=== PATIENT | female | born 1980 | race Hispanic/Latino ===

== ENCOUNTER 2020-02-20 14:11 | Inpatient (IN) | payer OTHER, SELFPAY ==
[~2020-02-20 14:11] MED LIST: CIPR-245 PO; METR500T PO
[2020-02-20] MEDS ORDERED: ONDANSETRON HCL 4 MG/2 ML VIAL ONE ×2 (14:25→19:51)
[2020-02-20 15:02] LABS: BASOPHILS % (AUTO) 0.3 % (0.0-5.0); HEMATOCRIT 41.7 % (36-48); LYMPHOCYTES % (AUTO) 10.1 % (21.0-51.0); MEAN CORPUSCULAR HEMOGLOBIN 30.9 pg (27.0-33.0); MEAN CORPUSCULAR HGB CONC 34.5 g/dL (32.0-36.0); MEAN CORPUSCULAR VOLUME 89.5 fL (79-99); MONOCYTES % (AUTO) 3.6 % (3.0-13.0); NEUTROPHILS % (AUTO) 85.3 % (40.0-77.0); PLATELET COUNT (AUTO) 301 K/uL (130-400); RED BLOOD CELL COUNT(AUTO) 4.66 MIL/uL (4.00-5.50); WHITE BLOOD COUNT (AUTO) 18.9 K/uL (4.8-10.8)
[2020-02-20 15:18] LABS: INR 0.97 (0.85-1.15); PARTIAL THROMBOPLASTIN TIME 24.2 SEC (26.3-35.5); PROTHROMBIN TIME 10.5 SEC (9.6-11.6)
[2020-02-20 15:46] LABS: CREATININE 0.9 mg/dL (0.5-1.5); POTASSIUM 3.3 mmol/L (3.5-5.1)
[2020-02-20 15:50] LABS: ALBUMIN 4.2 g/dL (3.5-5.0); BILIRUBIN,TOTAL 0.4 mg/dL (0.2-1.0); TOTAL PROTEIN, SERUM 7.6 g/dL (6.0-8.3)
[2020-02-20] MEDS ORDERED: FAMOTIDINE/PF 20 MG/2 ML VIAL IV ONE (16:03)
[2020-02-20 16:27] LABS: APPEARANCE,URINE Cloudy (CLEAR); BILIRUBIN,URINE Negative (NEGATIVE); COLOR,URINE Yellow (YELLOW); GLUCOSE, URINE (UA) Negative (NEGATIVE); KETONES,URINE >=160 mg/dL (NEGATIVE); LEUKOCYTE ESTERASE ,URINE Negative (NEGATIVE); NITRATE,URINE Negative (NEGATIVE); OCCULT BLOOD,URINE Nonhemolyzed Trace (NEGATIVE); PH,URINE 6.5 (5.0-8.0); PROTEIN,URINE Trace mg/dL (NEGATIVE)
[2020-02-20 16:30] LABS: HCG,QUAL RESULT NEGATIVE (NEGATIVE)
[2020-02-20 16:37] LABS: BACTERIA,URINE Rare /HPF (None Seen); WBC,URINE 0-1 /HPF (0-1)
[2020-02-20 16:38] LABS: MUCUS,URINE Moderate LPF (None Seen); SQUAMOUS EPITHELIAL CELL,UR Rare /HPF (0-2)
[2020-02-20] MEDS ORDERED: CEFTRIAXONE SODIUM 2 GM VIAL ONE (17:03)
[2020-02-20] MEDS ORDERED: SODIUM CHLORIDE 0.9% 100 ML IV ONE (17:03)
[2020-02-20] MEDS ORDERED: SODIUM CHLORIDE 0.9% 1000ML 1,000 ML IV ONE (17:03)
[2020-02-20 18:06] LABS: CRP QUANTITATIVE 3.4 mg/L (0.00-9.0)
[2020-02-20] MEDS ORDERED: SODIUM CHLORIDE 0.9% 500ML 500 ML IV ONE (19:30)
[2020-02-20] MEDS ORDERED: TRAMADOL HCL 50 MG TABLET ONE (19:52)
[2020-02-20] MEDS ORDERED: ERGOCALCIFEROL (VITAMIN D2) 50,000 UNIT CAPSULE PO ONE (22:00)
[2020-02-20] MEDS ORDERED: ACETAMINOPHEN 325 MG TAB PO PRN ×2 (22:00)
[2020-02-20] MEDS ORDERED: ONDANSETRON HCL 4 MG/2 ML VIAL IV PRN (22:00)
[2020-02-20] MEDS ORDERED: MORPHINE SULFATE 2 MG/ML 1ML SYG IVP PRN (22:00)
[2020-02-20] MEDS ORDERED: GUAIFENESIN-DM 200/20 MG 10 ML PO PRN (22:00)
[2020-02-20] MEDS ORDERED: DOXYCYCLINE 100MG+NS 250ML IV SCH (22:00)
[2020-02-20] MEDS ORDERED: CEFTRIAXONE SODIUM 1 GM IVP SCH (22:00)
[2020-02-20] MEDS ORDERED: POTASSIUM CHLORIDE 20MEQ/100ML 100 ML IV PRN (22:15)
[2020-02-20] MEDS ORDERED: MAGNESIUM 2GM PREMIX 50ML 50 ML IV PRN (22:15)
[2020-02-20] MEDS ORDERED: SODIUM CHLORIDE 0.9% 1000ML 1,000 ML IV SCH (22:15)
[2020-02-20] MEDS ORDERED: SODIUM CHLORIDE 0.9% 1000ML 500 ML IV SCH (22:15)
[2020-02-20] MEDS ORDERED: LIDOCAINE HCL-MPF 1% 2ML VIAL IV PRN (22:15)
[2020-02-20] MEDS ORDERED: NITROGLYCERIN 0.4 MG SL TAB SL PRN (22:45)
[2020-02-20] MEDS ORDERED: DOXYCYCLINE 100MG+NS 250ML 250 ML IV SCH (23:00)
[2020-02-21] MEDS ORDERED: ERGOCALCIFEROL (VITAMIN D2) 50,000 UNIT CAPSULE ONE (00:12)
[2020-02-21 01:15] LABS: CREATINE KINASE, TOTAL 108 U/L (21-232); MYOGLOBIN 82 ng/mL (10-92); TROPONIN I < 0.04 ng/mL (0.00-0.06)
[2020-02-21] MEDS ORDERED: ONDANSETRON HCL 4 MG/2 ML VIAL ONE ×2 (03:20→10:55)
[2020-02-21] MEDS ORDERED: POTASSIUM CHLORIDE 20MEQ/100ML 100 ML IV ONE (03:40)
[2020-02-21] MEDS ORDERED: LIDOCAINE HCL-MPF 1% 2ML VIAL ONE (03:40)
[2020-02-21] MEDS ORDERED: MORPHINE SULFATE 2 MG/ML 1ML SYG ONE ×2 (03:59→10:54)
[2020-02-21] MEDS ORDERED: METHYLPREDNISOLONE SOD SUCC 125MG/2ML VIAL ONE (04:00)
[2020-02-21 07:23] LABS: BASOPHILS % (AUTO) 0.1 % (0.0-5.0); MEAN CORPUSCULAR HEMOGLOBIN 30.9 pg (27.0-33.0); MEAN CORPUSCULAR HGB CONC 34.4 g/dL (32.0-36.0); MEAN CORPUSCULAR VOLUME 89.7 fL (79-99); MONOCYTES % (AUTO) 4.3 % (3.0-13.0); NEUTROPHILS % (AUTO) 88.1 % (40.0-77.0); PLATELET COUNT (AUTO) 204 K/uL (130-400); RED BLOOD CELL COUNT(AUTO) 3.79 MIL/uL (4.00-5.50); RED CELL DISTRIBUTION WIDTH 13.3 % (11.0-15.5); WHITE BLOOD COUNT (AUTO) 15.7 K/uL (4.8-10.8)
[2020-02-21 07:46] LABS: HEMOGLOBIN A1C 5.4 % (4.0-6.0)
[2020-02-21 08:12] LABS: ALANINE AMINOTRANSFERASE 23 U/L (12-78); ALBUMIN 3.4 g/dL (3.5-5.0); ASPARTATE AMINOTRANSFERASE 12 U/L (10-37); BILIRUBIN,TOTAL 0.3 mg/dL (0.2-1.0); CARBON DIOXIDE 20 mmol/L (21-32); CHLORIDE 113 mmol/L (101-111); CHOLESTEROL 147 mg/dL (<200); CREATINE KINASE, TOTAL 158 U/L (21-232); CREATININE 0.6 mg/dL (0.5-1.5); GLOMERULAR FILTR. RATE CALC 118 mL/min (>60); GLUCOSE,RANDOM 128 mg/dL (70-105); HDL CHOLESTEROL 50 mg/dL (35-85); LACTATE DEHYDROGENASE 149 U/L (81-234); LDL DIRECT 78 mg/dL (0-99); MYOGLOBIN 89 ng/mL (10-92); POTASSIUM 3.8 mmol/L (3.5-5.1); SODIUM SERUM 143 mmol/L (136-145); THYROID STIMULATING HORMONE 0.35 uIU/mL (0.36-3.74); TOTAL PROTEIN, SERUM 6.1 g/dL (6.0-8.3); TRIGLYCERIDES 115 mg/dL (30-200); TROPONIN I < 0.04 ng/mL (0.00-0.06); UREA NITROGEN, BLOOD 9 mg/dL (7-18)
[2020-02-21] MEDS ORDERED: ASCORBIC ACID 500 MG TAB ONE (08:23)
[2020-02-21] MEDS ORDERED: ASPIRIN 81MG TAB.CHEW ONE (08:23)
[2020-02-21] MEDS ORDERED: CEFTRIAXONE SODIUM 1 GM ONE (08:24)
[2020-02-21] MEDS ORDERED: ZINC SULFATE 220 CAPSULE ONE (08:24)
[2020-02-21] MEDS ORDERED: SODIUM CHLORIDE 0.9% 100 ML IV ONE (08:25)
[2020-02-21] MEDS ORDERED: ZINC SULFATE 220 CAPSULE PO SCH (09:00)
[2020-02-21] MEDS ORDERED: ASPIRIN 81MG TAB.CHEW PO SCH (09:00)
[2020-02-21] MEDS ORDERED: ASCORBIC ACID 500 MG TAB PO SCH (09:00)
--- NOTE | 2020-02-21 16:00 | NUR ---
SPOKE TO PATIENT VIA PHONE FOR [place] LIVES W MINOR DAUGHTER, WORKS, IS ACTIVE, INDEPENDENT, NO DME,& DCP IS HOME, FATHER TO [employer] TO DRIVE HOME. STATES FEELING BETTER, ANXIOUS TO LEAVE Addendum: 02/22/20 at 1148 by ALTA CARRION RN Amended: Links added.
[2020-02-21] MEDS ORDERED: CEFD300C3 PO (16:06)
[2020-02-21] MEDS ORDERED: TRAM50TA4 PO (16:06)
== END 2020-02-21 16:55 | disposition home or self-care (01) | DRG 195 ==
LOC: EDH 14:11 → EDHIP 14:12
PROVIDERS: ADMIT Internal Medicine; ATTEND Internal Medicine
DX: J18.9 Pneumonia, unspecified organism (principal); F17.210 Nicotine dependence, cigarettes, uncomplicated; Z20.828 Contact with and (suspected) exposure to other viral communicable diseases; Z83.3 Family history of diabetes mellitus
CPT/HCPCS: 36415; 71045; 74176; 80053; 80061; 81001; 81025; 82550; 82728; 83036; 83605; 83615; 83690; 83874; 84145; 84443; 84484; 85025; 85378; 85610; 85730; 86140; 93005; G0378; J0696; J2405; J2930; J3480; J3490; J7030; J7040; U0003

== ENCOUNTER 2020-06-26 03:47 | Emergency (ER) | payer OTHER, SELFPAY ==
[~2020-06-26 03:47] MED LIST changes: +CEFD300C3 PO; -CIPR-245 PO; -METR500T PO; +TRAM50TA4 PO
[2020-06-26] MEDS ORDERED: PROMETHAZINE HCL 25 MG/ML 1ML AMPULE IM ONE (03:48)
[2020-06-26 04:13] LABS: APPEARANCE,URINE Cloudy (CLEAR); BILIRUBIN,URINE Negative (NEGATIVE); COLOR,URINE Dark Yellow (YELLOW); GLUCOSE, URINE (UA) Negative (NEGATIVE); KETONES,URINE 40 mg/dL (NEGATIVE); LEUKOCYTE ESTERASE ,URINE Trace (NEGATIVE); NITRATE,URINE Negative (NEGATIVE); OCCULT BLOOD,URINE Large (NEGATIVE); PH,URINE 5.5 (5.0-8.0); PROTEIN,URINE POS 1+ mg/dL (NEGATIVE)
[2020-06-26 04:16] LABS: HCG,QUAL RESULT NEGATIVE (NEGATIVE)
[2020-06-26 04:22] LABS: AMORPHOUS SEDIMENT,UR Rare /LPF (None Seen); BACTERIA,URINE None Seen /HPF (None Seen); CALCIUM OXALATE CRYSTALS,UR Few /LPF (None Seen); MUCUS,URINE Moderate LPF (None Seen); SQUAMOUS EPITHELIAL CELL,UR Rare /HPF (0-2); WBC,URINE 0-1 /HPF (0-1)
[2020-06-26] MEDS ORDERED: ONDANSETRON HCL 4 MG/2 ML VIAL ONE (04:22)
[2020-06-26 04:29] LABS: BASOPHILS % (AUTO) 0.4 % (0.0-5.0); EOSINOPHILS % (AUTO) 0.5 % (0.0-8.0); HEMATOCRIT 39.6 % (36-48); LYMPHOCYTES % (AUTO) 17.8 % (21.0-51.0); MEAN CORPUSCULAR HEMOGLOBIN 31.3 pg (27.0-33.0); MEAN CORPUSCULAR HGB CONC 34.6 g/dL (32.0-36.0); MEAN CORPUSCULAR VOLUME 90.4 fL (79-99); MONOCYTES % (AUTO) 6.3 % (3.0-13.0); NEUTROPHILS % (AUTO) 74.5 % (40.0-77.0); PLATELET COUNT (AUTO) 257 K/uL (130-400); RED BLOOD CELL COUNT(AUTO) 4.38 MIL/uL (4.00-5.50); RED CELL DISTRIBUTION WIDTH 12.9 % (11.0-15.5); WHITE BLOOD COUNT (AUTO) 16.4 K/uL (4.8-10.8)
[2020-06-26 04:45] LABS: ALBUMIN 3.9 g/dL (3.5-5.0); BILIRUBIN,TOTAL 0.3 mg/dL (0.2-1.0); TOTAL PROTEIN, SERUM 7.1 g/dL (6.0-8.3)
[2020-06-26 04:49] LABS: POTASSIUM 2.9 mmol/L (3.5-5.1)
[2020-06-26] MEDS ORDERED: MORPHINE SULFATE 4 MG/1ML SYG ONE (04:51)
[2020-06-26] MEDS ORDERED: NS-20 MEQ KCL 1000ML 1,000 ML IV ONE (05:18)
== END 2020-06-26 07:29 | disposition home or self-care (01) ==
LOC: EDH 03:47
DX: A09 Infectious gastroenteritis and colitis, unspecified (principal); Z98.890 Other specified postprocedural states
CPT/HCPCS: 36415; 74177; 80053; 81001; 81025; 83690; 85025; 93005; 96361 ×3; 96372; 96374; 96375; 99285; J2270; J2405; J2550; J3480

== ENCOUNTER 2023-03-14 11:13 | Emergency (ER) | payer OTHER ==
[~2023-03-14] VITALS: Ht 167.6 cm; Wt 86.2 kg
[2023-03-14 11:50] LABS: APPEARANCE,URINE CLOUDY (CLEAR); BILIRUBIN,URINE NEGATIVE (NEGATIVE); COLOR,URINE YELLOW (YELLOW); GLUCOSE, URINE (UA) NEGATIVE (NEGATIVE); KETONES,URINE 5 mg/dL (NEGATIVE); LEUKOCYTE ESTERASE ,URINE 75 Leu/uL (NEGATIVE); NITRATE,URINE NEGATIVE (NEGATIVE); OCCULT BLOOD,URINE MODERATE (NEGATIVE); PH,URINE 5.5 (5.0-8.0); PROTEIN,URINE 20 mg/dL (NEGATIVE); UROBILINOGEN,URINE 0.2 mg/dL (0.2-1.0)
[2023-03-14 11:56] LABS: BACTERIA,URINE RARE /HPF (None Seen); MUCUS,URINE RARE LPF (None Seen); RBC,URINE 26-50 /HPF (0-1); SQUAMOUS EPITHELIAL CELL,UR FEW /HPF (0-2)
[2023-03-14] MEDS ORDERED: CEFTRIAXONE 1G VIAL IM ONE (12:00)
[2023-03-14] MEDS ORDERED: AZITHROMYCIN 250 MG TABLET PO ONE (12:00)
[2023-03-14] MEDS ORDERED: LIDOCAINE HCL 1% 20 ML VIAL ONE (12:49)
[2023-03-14 13:10] VITALS: BP 146/72; PULSE 72; RESP 19; O2SAT 98
== END 2023-03-14 13:16 | disposition home or self-care (01) ==
LOC: EDH 11:13
DX: N39.0 Urinary tract infection, site not specified (principal)
CPT/HCPCS: 99283; 87088; 87797; 87486; 81001; 96372; J0696

== ENCOUNTER 2025-08-15 07:14 | Emergency (ER) | payer BC, OTHER ==
[~2025-08-15] VITALS: Ht 172.7 cm; Wt 93.0 kg
[2025-08-15 07:20] VITALS: BP 116/71; PULSE 76; RESP 16; TEMP 98.8
[2025-08-15 08:07] LABS: RAPID GROUP A STREP negative (NEGATIVE)
[2025-08-15 08:11] LABS: SARS-CoV-2, RNA, NAAT NEGATIVE SARS CoV-2 (NEGATIVE)
[2025-08-15 08:17] LABS: INFLUENZA TYPE B Negative For Type B (NEGATIVE)
[2025-08-15 08:24] LABS: INFLUENZA TYPE A Positive For Type A (NEGATIVE)
[2025-08-15] MEDS ORDERED: OSEL75 PO (08:27)
--- NOTE | 2025-08-15 08:27 | ERN ---
General Chief Complaint: Cough Stated Complaint: COUGH, CONGESTION Time Seen by MD: 07:25 History of Present Illness Initial Comments 44-year-old female came in for cough. Allergies: Coded Allergies: No Known Drug Allergies (Unverified Allergy, Unknown, 01/29/24) Home Meds Active Scripts Tramadol Hcl (Tramadol HCl) 50 Mg Tablet, 50 MG PO Q8H for 2 Days, #6 TAB 0 Refills Prov:DUNCAN CINTRON AGACNP 02/21/20 Cefdinir (Cefdinir) 300 Mg Capsule, 300 MG PO Q12H for 7 Days, #14 CAP 0 Refills Prov:DUNCAN CINTRON AGACNP 02/21/20 Past Medical History Past Medical History: Diverticulitis, Diverticulosis Past Surgical History: Tonsillectomy Female( History) LMP: Jul 27, 2025 ROS Dictation Cough Physical Exam General Appearance: (+) no apparent distress, (+) apparent distress Orientation: (+) alert, (+) oriented x 3 Respiratory: (+) chest non-tender, (+) lungs clear Heart: (+) regular, (+) no gallop Gastrointestinal: (+) soft, (+) non-tender, (+) no organomegaly, (+) bowel sound present Results Laboratory and Microbiology Lab and Micro Result Laboratory Tests Test 08/15/25 07:41 Influenza Type A Antigen Positive For Type A Influenza Type B Antigen Negative For Type B SARS-CoV-2, RNA, NAAT NEGATIVE SARS CoV-2 Group A Streptococcus Rapid negative (NEGATIVE) MDM MDM: Differential diagnosis: Rationale: Tests considered and ordered secondary to shared decision making include: Previous outside records reviewed: Old ER visits. Risk of complication and/or morbidity or mortality of patient management: None Medications-Per medication reconciliation Need for hospitalization: Patient does not meet criteria for hospitalization. Need for emergency major/minor surgery: No There are no social concerns with this patient. Prescription drug management Prescriptions will include symptomatic care Patient's prior external medical records from other ER visits were reviewed by me as indicated. Prior testing and results from previous visits were reviewed. Prior tests were taken into account with medical decision making and resource utilization, independent historian/historians were used to obtain complete medical history. I independently interpreted the test that were performed, results were reviewed by me and considered findings on radiology if ordered. Medical management and examination interpretation discussions were had by me with other qualified healthcare professionals as indicated for the patient's care. ED Course Orders Procedure Category Date Status Time Influenza Type A & B, LAB 08/15/25 Complete Rapid 07:25 Covid Rna Naat LAB 08/15/25 Complete 07:25 Rapid (Group A Strep) LAB 08/15/25 Complete 07:25 Acetaminophen 500mg PHA 08/15/25 Complete Tab (Tylenol 500mg T 08:00 Current Medications Medications (Trade) Dose Ordered Sig/Junior Route PRN Reason Start Time Stop Time Status Last Admin Dose Admin Acetaminophen (TYLenol 500MG TAB) 1,000 mg ONCE ONCE PO 08/15/25 08:00 08/15/25 08:01 DC 08/15/25 07:56 Vital Signs Date Time Temp Pulse Resp B/P (MAP) Pulse Ox O2 Delivery O2 Flow Rate FiO2 08/15/25 07:20 98.8 76 16 116/71 96 Room Air 0 DX & DISP Disposition: Discharge Departure Impression: Primary Impression: Influenza Condition: Stable Scripts Oseltamivir Phosphate (Tamiflu) 75 Mg Cap 75 MG PO BID for 5 Days, #10 CAP Prov: VANDANA AMATO MD 08/15/25 Referrals: SELF,REFERRAL (PCP) VANDANA AMATO MD Aug 15, 2025 08:27
== END 2025-08-15 08:38 | disposition home or self-care (01) ==
LOC: EDH 07:14
DX: J10.1 Influenza due to other identified influenza virus with other respiratory manifestations (principal); Z20.822 Contact with and (suspected) exposure to COVID-19; Z90.89 Acquired absence of other organs
CPT/HCPCS: 87635; 87804; 87880; 99283